=== PATIENT | male | born 2000 | race Caucasian/White ===

== ENCOUNTER 2020-07-27 10:06 | Emergency (ER) | payer SELFPAY ==
[~2020-07-27] VITALS: Ht 167.6 cm; Wt 108.9 kg
[2020-07-27 10:12] VITALS: BP 169/102
[2020-07-27] MEDS ORDERED: LIDOCAINE/EPI 1% 1:100000 20 ML VIAL INJ ONE (10:35)
[2020-07-27] MEDS ORDERED: cephALEXin 500 MG CAP PO ONE (10:35)
[2020-07-27] MEDS ORDERED: HYDROcodone/APAP 5/325 MG 1 TAB TAB PO ONE (10:35)
[2020-07-27] MEDS ORDERED: SULFAMETH/TRIMETH DS 800/160MG 1 TAB PO ONE (10:35)
[2020-07-27] MEDS ORDERED: CEPH500C16 PO (11:15)
[2020-07-27] MEDS ORDERED: ACET-8386 PO (11:15)
[2020-07-27] MEDS ORDERED: SULF-59 PO (11:15)
[2020-07-27 11:35] VITALS: BP 169/102
== END 2020-07-27 11:36 | disposition home or self-care (01) ==
LOC: MED 10:06
DX: L05.01 Pilonidal cyst with abscess (principal); Z79.899 Other long term (current) drug therapy
CPT/HCPCS: 10080; 81002; 87070; 87205; 99284; J2001; 87075